=== PATIENT | male | born 1950 | race Caucasian/White ===

== ENCOUNTER 2017-11-27 18:35 | Emergency (ER) | payer OTHER ==
--- NOTE | 2017-11-27 18:45 | EDPHY ---
H & P Time Seen by Provider: 11/27/17 18:35 HPI/ROS: CHIEF COMPLAINT: Palpitations HISTORY OF PRESENT ILLNESS: Patient is a history of several previous episodes of atrial fibrillation, does not think he has ever been electrically cardioverted. Today he hiked up [place] 2300 ft of elevation gain and when he got back to his house at around 3:30 a.m. or 4 o'clock felt palpitations and rapid heart rate. This felt like previous AFib. Symptoms were moderate to severe and associated with dizziness and lightheadedness when he tried to stand up. Not associated with chest pain or shortness of breath. No actual syncope. REVIEW OF SYSTEMS: Eye: no change in vision ENT: no sore throat Cardiac: no chest pain or syncope Pulmonary: no cough or SOB Abdomen: no vomiting, diarrhea, abdominal pain Musculoskeletal: No leg swelling Skin: no rash Neuro: no headache Constitutional: no fever : no urinary symptoms A comprehensive 10 point review of systems is otherwise negative aside from elements mentioned in the history of present illness. PAST MEDICAL HISTORY: Includes attention deficit hyperactivity disorder, depression, lumbar radiculopathy, COPD, stable angina, multiple myeloma, anemia , atrial fibrillation. Social history: [facility] patient, primary care is Nicho Zuhair. General Appearance: Alert and conversant, cooperative. Eyes: No scleral icterus. ENT, Mouth: Normal mucous membranes. Respiratory: Normal respiratory effort, breath sounds equal, lungs are clear to auscultation. Cardiovascular: Regular rate and rhythm. No murmur auscultated. Gastrointestinal: Abdomen is soft and non tender. Neurological: Alert, face symmetric, normal motor and sensory in extremities. Skin: Warm and dry, no rashes. Musculoskeletal: No peripheral edema. Psychiatric: Not agitated. Emergency Department course/MDM: Plan for EKG, troponin and protime 1957: Monitor reviewed since he was here, no atrial fibrillation. Results reviewed with the patient INR is therapeutic. He is encouraged to take his metoprolol as prescribed , which he has not been doing. That is the most likely reason for his atrial fibrillation, I think that ischemia or pulmonary embolism or thyroid or other metabolic or all less likely. Constitutional: Initial Vital Signs Temperature (C) 36.5 C 11/27/17 18:47 Heart Rate 94 11/27/17 18:47 Respiratory Rate 18 11/27/17 18:47 Blood Pressure 107/57 L 11/27/17 18:47 O2 Sat (%) 95 11/27/17 18:47 O2 Delivery Mode Room Air Allergies/Adverse Reactions: No Known Allergies Allergy (Unverified 11/27/17 18:40) Home Medications: Medication Instructions Recorded Acyclovir 11/27/17 Dexamethasone 11/27/17 Finasteride 11/27/17 Lipitor 11/27/17 Nitroglycerin 11/27/17 Pepcid 11/27/17 Revlimid 11/27/17 Spiriva Inhaler (RX) 11/27/17 Tamsulosin HCl 11/27/17 Velcade Sc Conc 11/27/17 Warfarin Sodium 11/27/17 Zofran 11/27/17 Medical Decision Making - Diagnostics EKG Interpretation: 12-lead EKG interpreted by me; official reading is in trace master. My interpretation is sinus rhythm rate 87, no ischemic changes. Differential Diagnosis: Differential diagnosis considered for narrow complex tachycardia including but not limited to various causes of sinus tachycardia, SVT, atrial flutter and atrial fibrillation. - Data Points Laboratory Results: Laboratory Results 11/27/17 18:40 11/27/17 18:40 11/27/17 11/27/17 11/27/17 18:40 18:40 18:40 WBC 6.37 10^3/uL 10^3/uL (3.80-9.50) RBC 4.48 10^6/uL 10^6/uL (4.40-6.38) Hgb 14.4 g/dL g/dL (13.7-17.5) Hct 43.7 % % (40.0-51.0) MCV 97.5 fL fL (81.5-99.8) MCH 32.1 pg pg (27.9-34.1) MCHC 33.0 g/dL g/dL (32.4-36.7) RDW 17.1 % H % (11.5-15.2) Plt Count 134 10^3/uL L 10^3/uL (150-400) MPV 12.4 fL H fL (8.7-11.7) Neut % (Auto) 83.9 % H % (39.3-74.2) Lymph % (Auto) 12.4 % L % (15.0-45.0) [place] % (Auto) 2.7 % L % (4.5-13.0) Eos % (Auto) 0.5 % L % (0.6-7.6) Baso % (Auto) 0.2 % L % (0.3-1.7) Nucleat RBC Rel Count 0.0 % % (0.0-0.2) Absolute Neuts (auto) 5.35 10^3/uL 10^3/uL (1.70-6.50) Absolute Lymphs (auto) 0.79 10^3/uL L 10^3/uL (1.00-3.00) Absolute Monos (auto) 0.17 10^3/uL L 10^3/uL (0.30-0.80) Absolute Eos (auto) 0.03 10^3/uL 10^3/uL (0.03-0.40) Absolute Basos (auto) 0.01 10^3/uL L 10^3/uL (0.02-0.10) Absolute Nucleated RBC 0.00 10^3/uL 10^3/uL (0-0.01) Immature Gran % 0.3 % % (0.0-1.1) Immature Gran # 0.02 10^3/uL 10^3/uL (0.00-0.10) PT 29.8 SEC H SEC (12.0-15.0) INR 2.85 H (0.83-1.16) APTT 34.3 SEC SEC (23.0-38.0) Sodium 145 mEq/L mEq/L (135-145) Potassium 3.2 mEq/L L mEq/L (3.5-5.2) Chloride 104 mEq/L mEq/L (97-110) Carbon Dioxide 28 mEq/l mEq/l (22-31) Anion Gap 13 mEq/L mEq/L (8-16) BUN 11 mg/dL mg/dL (7-23) Creatinine 0.7 mg/dL mg/dL (0.7-1.3) Estimated GFR > 60 Glucose 92 mg/dL mg/dL (70-100) Calcium 9.4 mg/dL mg/dL (8.5-10.4) Troponin I 0.016 ng/mL ng/mL (0.000-0.034) Departure - Departure Disposition: Home, Routine, Self-Care Clinical Impression: Palpitations Condition: Good Instructions: Heart Palpitations (ED) Additional Instructions: I recommend you take the metoprolol as prescribed. Referrals: [facility] ,. [Primary Care Provider] - As per Instructions
[2017-11-27 18:52] VITALS: TEMP 97.7
--- NOTE | 2017-11-27 18:55 | CPEKG ---
Heart Rate: 87 RR Interval: 690 P-R Interval: 188 QRSD Interval: 92 QT Interval: 384 QTC Interval: 462 P [place]: 46 QRS [place]: 11 T Wave [place]: 14 EKG Severity - NORMAL ECG - EKG Impression: SINUS RHYTHM Electronically Signed By: Vito Garcia 27-Nov-2017 20:45:22
[2017-11-27 19:02] LABS: PLATELET COUNT 134 10^3/uL (150-400)
[2017-11-27 19:36] LABS: INR 2.85 (0.83-1.16); PROTIME(PATIENT) 29.8 SEC (12.0-15.0)
[2017-11-27 20:05] VITALS: BP 110/70; PULSE 77; RESP 16; O2SAT 96
== END 2017-11-27 20:05 | disposition home or self-care (01) ==
LOC: EDUNIT#
DX: R00.2 Palpitations (principal); J44.9 Chronic obstructive pulmonary disease, unspecified